=== PATIENT | female | born 1985 | race Hispanic/Latino ===

== ENCOUNTER → 2023-07-08 | Emergency (ER) | payer BC ==
--- OUTSIDE RECORDS SUMMARY | 2023-07-08 21:46 | XMS REPORT | Continuity of Care Document ---
Author Name Unknown Address [address] [facility] [address] [place] [address] [facility] thconnect Address [address] [facility] [address] [place] [address] Care Team Providers Care Forming Machine Operator Name Role Phone Unavailable Unavailable Unavailable Encounters Start Date/Time End Date/Time Encounter Type Admission Type Attending [facility] Facility Care Department Encounter ID Source 2023-07-03 17:01:21 2023-07-03 17:01:21 Outpatient [facility] [id number] Rex Gary 2023-06-16 14:02:56 2023-06-16 14:02:56 Outpatient [facility] [id number] Rex Gary 2023-02-10 16:36:25 2023-02-10 16:36:25 Outpatient [facility] [id number] Rex Gary
[2023-07-08 23:24] LABS: Specific Gravity 1.012 (1.005-1.030); Urine Bilirubin NEGATIVE (Negative); Urine Blood Negative (Negative); Urine Clarity Clear (Clear); Urine Color Colorless (Yellow); Urine Glucose NEGATIVE (Negative); Urine Protein NEGATIVE (Negative); Urine Urobilinogen Normal (Normal); Urine pH 5.5 (5.0-7.0)
[2023-07-08 23:26] LABS: Specific Gravity 1.012 (1.005-1.030)
[2023-07-08 23:40] LABS: ALT/SGPT 21 U/L (13-56); AST/SGOT 12 U/L (15-37); Alkaline Phosphatase 74 U/L (45-117); BUN Blood Urea Nitrogen 11 mg/dL (7-18); Bicarbonate 26 mEq/L (21-32); Bilirubin Total 0.3 mg/dL (0.2-1.0); Glomerular Filtration Rate 106 ml/min (=/>90); Glucose Level 99 mg/dL (74-106); Potassium 3.6 mEq/L (3.5-5.1); Protein, Total 7.6 g/dL (6.4-8.2); Sodium Level 137 mEq/L (136-145)
[2023-07-08 23:43] LABS: Absolute Lymphocytes (CBC) 1.5 K/uL (0.7-4.9); Bilirubin Direct < 0.1 mg/dL (0-0.2); Bilirubin Indirect, Calculated ND mg/dL (0.2-0.8); Hematocrit 32.1 % (36.0-45.0); Lymphocytes % 14.4 % (15.3-44.8); MCV 75.9 fL (80-100); MPV 8.9 fL (7.6-11.3); Platelets 302 thou/uL (152-406); RBC Red Blood Cell Count 4.23 M/uL (3.86-4.86)
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
== END ==
LOC: ER 21:42
DX: T24.612A Corrosion of second degree of left thigh, initial encounter (principal); T20.56XA Corrosion of first degree of forehead and cheek, initial encounter; T24.502A Corrosion of first degree of unspecified site of left lower limb, except ankle and foot, initial encounter; T32.0 Corrosions involving less than 10% of body surface
CPT/HCPCS: 36415; 80048; 80076; 81003; 81025; 85025

== ENCOUNTER 2024-01-05 11:21 | Emergency (ER) | payer BC ==
--- OUTSIDE RECORDS SUMMARY | 2024-01-05 11:24 | XMS REPORT | Continuity of Care Document ---
Author Name Unknown Address [address] [facility] [address] [place] [address] [facility] thconnect Address [address] [facility] [address] [place] [address] Care Team Providers Care Political Science Faculty Member Name Role Phone Unavailable Unavailable Unavailable Encounters Start Date/Time End Date/Time Encounter Type Admission Type Attending [facility] Facility Care Department Encounter ID Source 2023-07-03 17:01:21 2023-07-03 17:01:21 Outpatient [facility] [id number] Rex Gary 2023-06-16 14:02:56 2023-06-16 14:02:56 Outpatient [facility] [id number] Rex Gary 2023-02-10 16:36:25 2023-02-10 16:36:25 Outpatient [facility] [id number] Rex Gary
[2024-01-05] MEDS ORDERED: FAMOTIDINE 20 MG/2 ML VIAL IV ONE (11:28)
[2024-01-05] MEDS ORDERED: METHYLPREDNISOLONE 125 MG INJ ONE (11:28)
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
--- NOTE | 2024-01-05 11:53 | EDPHYS ---
Physician Documentation [facility] Name: Awilda Ritchie Age: 38 yrs Sex: Female : 1985 Arrival Date: 01/05/2024 Time: 11:21 Bed 5 Private MD: ED Physician Chau Henley HPI: 01/04 11:51 This 38 yrs old Female presents to ER via EMS with complaints of Allergic kb Reaction. 11:51 Patient is a 38-year-old female who presents for allergic reaction after being bitten kb by fire ants. 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 Reports erythema to skin and hives prior to arrival that have resolved after EMS treatment.. Historical: - Allergies: 11:26 NSAIDS; bp 11:32 Aspirin; aa5 11:32 Ants; aa5 - Immunization history:: Adult Immunizations up to date. - Infectious Disease History:: Denies. - Social history:: Smoking status: Patient denies any tobacco usage or history of. ROS: 11:49 Constitutional: As per HPI kb Exam: 11:49 Constitutional: This is a well developed, well nourished patient who is awake, alert, kb and in no acute distress. Head/Face: Normocephalic, atraumatic. ENT: Moist Mucous membranes Cardiovascular: Regular rate Respiratory: Respirations even and unlabored. No increased work of breathing. Talking in full sentences Abdomen/GI: Soft, non-tender. No distention Skin: Warm, dry with normal turgor. Normal color. MS/ Extremity: Pulses equal, no cyanosis. Neurovascular intact. Full, normal range of motion. Neuro: Awake and alert, GCS 15, oriented to person, place, time, and situation. Moves all extremities. Normal gait. Vital Signs: 11:24 BP 127 / 81; Pulse 69; Resp 16; Temp 98.6; Pulse Ox 100% ; bp 11:57 BP 121 / 78; Pulse 70; Resp 16; Pulse Ox 100% ; bp MDM: 11:22 Patient medically screened. kb 11:50 Differential diagnosis: anaphylaxis, angioedema, urticaria. Data reviewed: vital signs, kb nurses notes. Historians other than the Patient: EMS: [facility]. Counseling: I had a detailed discussion with the patient and/or guardian regarding the historical points, exam findings, and any diagnostic results supporting the discharge/admit diagnosis, the need for outpatient follow up, a family practitioner, to return to the emergency department if symptoms worsen or persist or if there are any questions or concerns that arise at home. ED course: Patient is a 38-year-old female who presents for allergic reaction to fire ants that started just prior to arrival. EMS administered 1 L of lactated Ringer's and 25 Benadryl IV which resolved patient's symptoms (hives). Patient states she is feeling back to normal now. Solu-Medrol and Pepcid given. Patient will be prescribed prednisone and Pepcid for the next 5 days and educated on return cautions. Stable for discharge. Administered Medications: 11:31 Drug: Famotidine IVP 20 mg IVP once; dilute with 10 mL 0.9% NaCl; give over 2 minutes aa5 Route: IVP; Site: left antecubital; 12:16 Follow up: Response: No adverse reaction bp 11:31 Drug: MethylPrednisoLONE IVP 125 mg IVP once Route: IVP; Site: left antecubital; aa5 12:16 Follow up: Response: No adverse reaction bp Disposition Summary: 01/05/24 11:52 Discharge Ordered Notes: Location: Home kb Condition: Stable kb Diagnosis - Allergic urticaria kb Followup: kb - With: Emergency Department - When: As needed - Reason: Worsening of condition Followup: kb - With: Private Physician - When: 2 - 3 days - Reason: Recheck today's complaints, Continuance of care, Re-evaluation by your physician Discharge Instructions: - Discharge Summary Sheet kb - Hives, [id number] kb Forms: - Medication Reconciliation Form kb - Antibiotic Education kb - Prescription Opioid Use kb - Patient Portal Instructions kb - Leadership Thank You Letter kb - Work release form bp Prescriptions: - Pepcid 20 mg Oral Tablet - take 1 tablet ORAL route every 12 hours for 5 days; 10 tablet; Refills: 0, kb Product Selection Permitted - Prednisone 20 mg Oral Tablet - take 1 tablet ORAL route once daily for 5 days; 5 tablet; Refills: 0, Product kb Selection Permitted Signatures: Sheila Gilbert FNP-C FNP-Malgorzata Benson RN RN aa5 Javier Amos RN RN bp
[2024-01-05 14:25] VITALS: TEMP 98.6; O2SAT 100
[2024-01-05 14:26] VITALS: BP 121/78
== END 2024-01-05 12:17 | disposition home or self-care (01) ==
LOC: ER 11:21
DX: L50.0 Allergic urticaria (principal)
CPT/HCPCS: 96375; 96374; 99284; J2919